=== PATIENT | female | born 1995 | race Caucasian/White ===

== ENCOUNTER → 2025-07-04 | Outpatient (CLI) | payer OTHER, SELFPAY ==
--- NOTE | 2025-07-04 11:26 | RAD_ITS ---
PROCEDURE: RAD/Lumbar Spine 2 or 3 Views
== END | disposition home or self-care (01) ==
LOC: RAD 11:19
PROVIDERS: PCP Internal Medicine; Referring Provider Anesthesiology; Visit Provider Anesthesiology
DX: M54.16 Radiculopathy, lumbar region (principal)
CPT/HCPCS: 72100